=== PATIENT | female | born 1950 | race American Indian/Alaskan Native ===

== ENCOUNTER 2017-10-18 10:03 | Outpatient (CLI) | payer MEDICARE, OTHER ==
--- NOTE | 2017-10-18 15:18 | Cat Scan Report ---
CT ABDOMEN PELVIS WITHOUT CONTRAST: HISTORY: Left lower quadrant abdominal pain. COMPARISON: none. TECHNIQUE: Helical CT in 1.25mm intervals without IV contrast. Sagittal and coronal reconstructions. FINDINGS: Lung bases: Normal. Liver: Normal. Biliary system: Normal. Pancreas: Normal. Spleen: Normal. Kidneys/ureters/bladder: Both kidneys are normal size and position. A 4 mm calyceal stone is noted in the mid right kidney. 1 or 2 simple appearing cysts measuring up to 2 cm in the left kidney. No ureteral stones or hydronephrosis. The bladder is partially empty but mild diffuse bladder wall thickening is suspected, correlate for cystitis. Adrenal glands: Normal. Aorta: Normal caliber. Mild diffuse calcifications are noted. Intestines: There is scattered diverticula in the distal colon. There appears to be an ill-defined fluid collection in the left lower quadrant/left adnexal region measuring up to 5.8 x 4.8 cm. Mild inflammatory changes surround this area. This may represent a diverticular abscess. Appendix: Normal. Pelvic viscera: The uterus is mildly lobulated with small fibroids. The previously described fluid collection in the left adnexal region is again noted and presumably represents a diverticular abscess. Left ovarian abnormality could also be considered. The right adnexa is unremarkable. Ascites: None. Adenopathy: None. Musculoskeletal: Mild to moderate thoracolumbar spondylosis is noted. No fracture or suspicious bony lesion. IMPRESSION: An approximate 5 cm fluid collection containing gas is identified in the left side of the pelvis/left lower quadrant. There are multiple diverticula and mild inflammatory changes in this area. This presumably represents a peridiverticular abscess. Left ovarian pathology could also be considered but is thought less likely. Bladder wall thickening which could represent a cystitis. 4 mm right renal stone. Scattered simple cysts in the left kidney. Uterine fibroid disease.
== END 2017-10-18 10:04 | disposition home or self-care (01) ==
LOC: CT 10:03
PROVIDERS: ATTEND Internal Medicine
DX: N20.0 Calculus of kidney (principal); D25.9 Leiomyoma of uterus, unspecified; K57.30 Diverticulosis of large intestine without perforation or abscess without bleeding; N28.1 Cyst of kidney, acquired; M47.895 Other spondylosis, thoracolumbar region; I70.0 Atherosclerosis of aorta
CPT/HCPCS: 74176

== ENCOUNTER 2017-12-23 06:32 | Day surgery (SDC) | payer MEDICARE ==
[2017-12-23] MEDS ORDERED: NACL 0.9% 500 ML 500 ML IV SCH (07:00)
[2017-12-23 07:31] LABS: Basophils % (Auto) 0.4 % (0.0-1.8); Eosinophils % (Auto) 0.6 % (0.0-4.3); Hemoglobin 12.9 gm/dl (10.1-14.3); Lymphocytes # (Auto) 1.8 K/mm3 (1.2-5.4); Lymphocytes % (Auto) 31.6 % (13.4-35.0); Mean Corpuscular HGB Conc 33 % (30-34); Mean Corpuscular Hemoglobin 28 pg (28-32); Mean Corpuscular Volume 86 fl (79-97); Monocytes # (Auto) 0.4 K/mm3 (0.0-0.8); Monocytes % (Auto) 7.7 % (0.0-7.3); Platelet Count 164 K/mm3 (140-440); Red Blood Count 4.55 M/mm3 (3.65-5.03); Red Cell Distribution Width 17.6 % (13.2-15.2)
[2017-12-23 07:43] LABS: BUN/Creatinine Ratio 26; Blood Urea Nitrogen 21 mg/dL (7-17); Calcium 9.9 mg/dL (8.4-10.2); Hemolysis Index 11; INR 1.05 (0.87-1.13)
[2017-12-23] MEDS ORDERED: HEPARIN 10,000 UNITS/10 ML ONE (10:30)
[2017-12-23] MEDS ORDERED: HEPARIN/NS 5000 UNIT/500ML(CATH LAB) 1,000 ML IR ONE (10:30)
[2017-12-23] MEDS ORDERED: VERSED ONE (10:31)
[2017-12-23] MEDS ORDERED: SUBLIMAZE ONE (10:31)
[2017-12-23] MEDS ORDERED: NITROGLYCERIN SYRINGE 0 ML ONE (10:31)
[2017-12-23] MEDS ORDERED: XYLOCAINE 2% INFILTRATI ONE (10:31)
[2017-12-23] MEDS ORDERED: CALAN ONE (10:31)
--- NOTE | 2017-12-23 12:30 | Cardiac Catherization Report ---
INDICATION FOR PROCEDURE: The patient is a 67-year-old female with history of hypertension, hyperlipidemia, was recently evaluated for palpitations, was noted to have PVCs, has a stress EKG performed, which showed evidence of inferolateral ischemia on the EKG along with salvos of PVCs. Considering her abnormal EKG response and PVCs, she was recommended to have cardiac catheterization for definitive diagnosis and treatment. She is aware of the alternatives of medical therapy. The patient is willing to have cardiac catheterization done for definitive diagnosis. The patient was brought to the catheterization laboratory in a fasting condition. The right wrist area and forearm thoroughly cleansed with Betadine solution. Sterile drapes were applied. Local anesthesia was achieved using 2% Xylocaine. Right radial artery puncture was made using 21-gauge arterial puncture needle. Subsequently, 5 [place] sheath was introduced. The patient received 5 mg of intra-arterial verapamil and 3000 units of intravenous heparin. Using 5-[place] multipurpose catheter, left ventriculogram was performed in SNOW projection using hand injection. Subsequently, 5-[place] TIG catheter was used to obtain the angiograms of the left coronary artery and right coronary artery in multiple views. At the end of the procedure, catheter and sheath was removed. The patient was evaluated for appropriateness of moderate sedation prior to the procedure, and she was sedated with IV versed starting at 10:51 a.m. She has received Versed and fentanyl. She was monitored continuously with EKG, pulse oximetry, and noninvasive blood pressure monitoring. Sedation monitoring discontinued at 11:09 a.m. The patient tolerated the procedure well. The patient was transferred to the room in stable condition. She will be monitored for next few hours. When stable, she will be discharged home on medical therapy. Following findings were noted. HEMODYNAMICS: 1. Opening aortic pressure 158/74, left ventricular pressure 156/25, no gradient across the aortic valve. Estimated ejection fraction 65%. Mitral regurgitation could not be evaluated because of limited amount of dye injected. 2. Right coronary artery dominant artery arises normally from right coronary cusp. Right coronary artery dominant vessel arises normally from right coronary cusp. There is a 40% smooth lesion proximally. Distal RCA, PDA and its branch are without significant disease. 3. Left coronary artery arises normal from left coronary cusp. Left main has mild distal disease. LAD shows diffuse calcifications in the proximal and mid part. Otherwise, LAD and its diagonal branches without significant disease. 4. Right circumflex artery shows fairly medium size to large marginal branch, which has long eccentric 80% stenosis in the proximal one-third. In the mid part, circumflex artery has a focal 90% lesion. This is just prior to the bifurcation. Distal second marginal branch has 30-40% moderate disease. 5. Collaterals none. FINAL IMPRESSION: Normal sized left ventricle with normal contractility with mild to moderate right coronary artery disease and diffuse calcifications of the left anterior descending with no obstructive lesions of the left anterior descending or its branches. Circumflex artery had significant disease in the mid circ and also a fairly large marginal branch. These are amenable to intervention. Plan is to optimize her medical therapy. If she is still symptomatic or ischemic, then we can consider intervention of the mid circumflex and marginal branches. The patient is already on metoprolol 50 mg b.i.d. We will add amlodipine 10 mg a day for control of her blood pressures and see how she responds to medication. The patient tolerated the procedure well. No untoward complications were noted. JOB# [id number] PARISH/JOELLE
[2017-12-23 14:23] VITALS: BP 127/60
== END 2017-12-23 14:00 | disposition home or self-care (01) ==
LOC: CATHLABREC 06:32
PROVIDERS: ATTEND Internal Medicine
DX: I25.10 Atherosclerotic heart disease of native coronary artery without angina pectoris (principal); I10 Essential (primary) hypertension; E78.5 Hyperlipidemia, unspecified; E66.09 Other obesity due to excess calories; Z68.36 Body mass index [BMI] 36.0-36.9, adult; Z79.01 Long term (current) use of anticoagulants; Z79.899 Other long term (current) drug therapy; Z79.82 Long term (current) use of aspirin; Z86.711 Personal history of pulmonary embolism
CPT/HCPCS: 36415; 80048; 85025; 85610; 85730; 93005; 93010; 93458; 99156; 99157; C1887; C1894; J1644; J2250; J3010; J7040; Q9967

== ENCOUNTER 2018-11-22 15:12 | Observation (INO) | payer MEDICARE, OTHER ==
--- NOTE | 2018-11-22 15:31 | Emergency Department Report ---
Blank Doc - Documentation Documentation: This is a 68-year-old female that presents with dizziness x3 days. Denies any headache or visual changes. Denies any other complaints. This initial assessment diagnostic orders/clinical plan/treatment(s) is/are subject to change based on patient's health status, clinical progression and re- assessment by fellow clinical providers in the ED. Further treatment and workup at subsequent clinical providers discretion. Patient/guardians urged not to elope from ED s their condition may be serious if not clinically assessed and managed. Initial orders include: 1-Patient sent to man ED for further evaluation and treatment. 2- Labs 3- EKG 4- orthostatic vitals
[2018-11-22 15:45] LABS: Bilirubin,Urine NEG (Negative); Blood,Urine NEG (Negative); Color,Urine Straw (Yellow); Mucus,Urine FEW /HPF; Protein,Urine <15 mg/dL mg/dL (Negative); Urobilinogen,Urine < 2.0 mg/dL (<2.0)
[2018-11-22] MEDS ORDERED: TYLENOL PO ONE (16:23)
[2018-11-22] MEDS ORDERED: ANTIVERT PO ONE (16:23)
[2018-11-22 16:44] LABS: Basophils % (Auto) 0.5 % (0.0-1.8); Eosinophils % (Auto) 0.6 % (0.0-4.3); Hematocrit 36.5 % (30.3-42.9); Hemoglobin 11.9 gm/dl (10.1-14.3); Lymphocytes # (Auto) 1.5 K/mm3 (1.2-5.4); Lymphocytes % (Auto) 28.6 % (13.4-35.0); Mean Corpuscular HGB Conc 33 % (30-34); Mean Corpuscular Volume 88 fl (79-97); Monocytes # (Auto) 0.3 K/mm3 (0.0-0.8); Monocytes % (Auto) 6.4 % (0.0-7.3); Platelet Count 161 K/mm3 (140-440); Red Blood Count 4.13 M/mm3 (3.65-5.03); Red Cell Distribution Width 14.9 % (13.2-15.2)
[2018-11-22 16:53] LABS: INR 1.09 (0.87-1.13)
[2018-11-22 17:05] LABS: Alanine Aminotransferase 11 units/L (7-56); Albumin 4.1 g/dL (3.9-5); BUN/Creatinine Ratio 28; Blood Urea Nitrogen 25 mg/dL (7-17); Hemolysis Index 14
--- NOTE | 2018-11-22 17:43 | Cat Scan Report ---
FINAL REPORT EXAM: CT HEAD/BRAIN WO CON HISTORY: dizzy off balance TECHNIQUE: 2.5 millimeter axial images from the skullbase to the vertex. Comparison: None FINDINGS: There is no evidence of an acute intracranial process, intracranial hemorrhage or mass effect. The ventricles are normal size. There is moderate to marked atherosclerotic vascular calcification of the internal carotid arteries b ilaterally at the skullbase. The visualized portions of the orbits, paranasal and mastoid sinuses are unremarkable. The bony structures are unremarkable. IMPRESSION: 1. No evidence of an acute intracranial process, intracranial hemorrhage or mass effect. If there is a clinical suspicion of an acute intracranial process, MRI brain may be helpful.
--- NOTE | 2018-11-22 18:52 | Emergency Department Report ---
ED General Adult HPI - General Chief complaint: Dizziness Stated complaint: DIZZY Time Seen by Provider: 11/22/18 15:22 Source: patient, RN notes reviewed, old records reviewed Mode of arrival: Ambulatory Limitations: No Limitations - History of Present Illness Initial comments: This is a 68-year-old female who is not known to this provider previously. Her past medical history includes hypertension, heart disease, coronary artery disease., Gout, high cholesterol. The patient presents to the emergency room today with a complaint of nontraumatic painless dizziness and subjective unsteady gait. These symptoms have been present for the past 2-3 days. There is no tinnitus, there is no vertigo, there is no change in auditory acuity. Symptoms constant, painless, do not radiate anywhere, and worsen when the patient attempts to walk. She has no neck pain, chest pain, abdominal pain, shortness of breath or urinary symptoms. -: Gradual Severity scale (0 -10): 5 Consistency: constant Improves with: other Worsens with: other Associated Symptoms: other. denies: confusion, chest pain, cough, diaphoresis, fever/chills, headaches, loss of appetite, malaise, nausea/vomiting, rash, seizure, shortness of breath, syncope, weakness - Related Data Home Medications Medication Instructions Recorded Confirmed Last Taken Allopurinol [Zyloprim] 300 mg PO QDAY 12/23/17 12/23/17 12/22/17 Aspirin EC [Aspirin Enteric Coated 81 mg PO QDAY 12/23/17 12/23/17 12/22/17 TAB] AtorvaSTATin [Lipitor] 40 mg PO QDAY 12/23/17 12/23/17 12/23/17 05:30 Metoprolol [Lopressor TAB] 50 mg PO BID 12/23/17 12/23/17 12/23/17 05:30 Triamter/Hctz 37.5-25 mg 1 tab PO QDAY 12/23/17 12/23/17 12/23/17 05:30 [Maxzide-25] Valsartan [Diovan] 160 mg PO QDAY 12/23/17 12/23/17 12/23/17 05:30 Previous Rx's Medication Instructions Recorded Last Taken Type amLODIPine [Norvasc] 10 mg PO DAILY #30 tab 12/23/17 Unknown Rx Allergies Allergy/AdvReac Type Severity Reaction Status Date / Time No Known Allergies Allergy Verified 12/23/17 07:00 ED Review of Systems ROS: Stated complaint: DIZZY Other details as noted in HPI Constitutional: denies: fever, malaise Eyes: denies: vision change ENT: denies: ear pain, throat pain, epistaxis Respiratory: denies: cough Cardiovascular: denies: chest pain Gastrointestinal: denies: abdominal pain, nausea, vomiting Genitourinary: denies: dysuria Musculoskeletal: denies: back pain Skin: denies: lesions Neurological: abnormal gait Psychiatric: denies: anxiety ED Past Medical Hx - Past Medical History Hx GERD: Yes (Hx) - Surgical History Past Surgical History?: No - Social History Smoking Status: Never Smoker Substance Use Type: None - Medications Home Medications: Home Medications Medication Instructions Recorded Confirmed Last Taken Type Allopurinol [Zyloprim] 300 mg PO QDAY 12/23/17 12/23/17 12/22/17 History Aspirin EC [Aspirin Enteric Coated 81 mg PO QDAY 12/23/17 12/23/17 12/22/17 History TAB] AtorvaSTATin [Lipitor] 40 mg PO QDAY 12/23/17 12/23/17 12/23/17 05:30 History Metoprolol [Lopressor TAB] 50 mg PO BID 12/23/17 12/23/17 12/23/17 05:30 History Triamter/Hctz 37.5-25 mg 1 tab PO QDAY 12/23/17 12/23/17 12/23/17 05:30 History [Maxzide-25] Valsartan [Diovan] 160 mg PO QDAY 12/23/17 12/23/17 12/23/17 05:30 History amLODIPine [Norvasc] 10 mg PO DAILY #30 tab 12/23/17 Unknown Rx ED Physical Exam - General Limitations: No Limitations General appearance: alert, in no apparent distress - Head Head exam: Present: atraumatic, normocephalic - Eye Eye exam: Present: normal appearance, PERRL, EOMI, other (visual acuity intact to finger counting, color perception, reading at a close distance). Absent: nystagmus - ENT ENT exam: Present: normal exam, normal orophraynx, mucous membranes moist, TM's normal bilaterally, normal external ear exam, other (there is no mastoid t enderness. No vesicular lesions noted.) - Neck Neck exam: Present: normal inspection, full ROM. Absent: tenderness, meningismus - Respiratory Respiratory exam: Present: normal lung sounds bilaterally. Absent: respiratory distress - Cardiovascular Cardiovascular Exam: Present: regular rate, normal rhythm, normal heart sounds. Absent: bradycardia, tachycardia, irregular rhythm, systolic murmur, diastolic murmur, rubs, gallop - GI/Abdominal GI/Abdominal exam: Present: soft. Absent: distended, tenderness, guarding, rebound, rigid, pulsatile mass - Extremities Exam Extremities exam: Present: normal inspection, full ROM, other (2+ pulses noted in the bilateral upper, lower extremities. Compartments soft. No long bony tenderness. The pelvis is stable.). Absent: pedal edema, joint swelling, calf tenderness - Back Exam Back exam: Present: normal inspection, full ROM. Absent: tenderness, CVA tenderness (R) - Neurological Exam Neurological exam: Present: alert (there is no past-pointing. There is normal [id number]. He has negative pronator drift.), oriented X3, CN II-XII intact, abnormal gait (patient walks with a broad-based unsteady gait, and requires a 1 person assist), other (Extraocular movements intact. Tongue midline. No facial droop. Facial sensation intact to light touch in the V1, V2, V3 distribution bilaterally. 5 and 5 strength in 4 extremities.. Sensation is intact to light touch in 4 extremities.). Absent: motor sensory deficit - Psychiatric Psychiatric exam: Present: normal affect, normal mood - Skin Skin exam: Present: warm, dry, intact, normal color. Absent: rash ED Course Vital Signs 11/22/18 11/22/18 11/22/18 15:28 18:06 18:24 Temperature 98 F Pulse Rate 62 52 L Respiratory 16 16 16 Rate Blood Pressure 157/77 155/72 [Left] O2 Sat by Pulse 100 97 Oximetry ED Medical Decision Making - Lab Data Result diagrams: 11/22/18 15:55 11/22/18 15:55 Vital Signs 11/22/18 11/22/18 11/22/18 15:28 18:06 18:24 Temperature 98 F Pulse Rate 62 52 L Respiratory 16 16 16 Rate Blood Pressure 157/77 155/72 [Left] O2 Sat by Pulse 100 97 Oximetry Lab Results 11/22/18 11/22/18 11/22/18 Range/Units 15:55 15:55 15:55 WBC 5.3 (4.5-11.0) K/mm3 RBC 4.13 (3.65-5.03) M/mm3 Hgb 11.9 (10.1-14.3) gm/dl Hct 36.5 (30.3-42.9) % MCV 88 (79-97) fl MCH 29 (28-32) pg MCHC 33 (30-34) % RDW 14.9 (13.2-15.2) % Plt Count 161 (140-440) K/mm3 Lymph % (Auto) 28.6 (13.4-35.0) % [place] % (Auto) 6.4 (0.0-7.3) % Eos % (Auto) 0.6 (0.0-4.3) % Baso % (Auto) 0.5 (0.0-1.8) % Lymph # 1.5 (1.2-5.4) K/mm3 [place] # 0.3 (0.0-0.8) K/mm3 Eos # 0.0 (0.0-0.4) K/mm3 Baso # 0.0 (0.0-0.1) K/mm3 Seg Neutrophils % 63.9 (40.0-70.0) % Seg Neutrophils # 3.4 (1.8-7.7) K/mm3 PT 14.8 (12.2-14.9) Sec. INR 1.09 (0.87-1.13) APTT 24.0 L (24.2-36.6) Sec. Sodium 140 (137-145) mmol/L Potassium 3.9 (3.6-5.0) mmol/L Chloride 103.8 (98-107) mmol/L Carbon Dioxide 23 (22-30) mmol/L Anion Gap 17 mmol/L BUN 25 H (7-17) mg/dL Creatinine 0.9 (0.7-1.2) mg/dL Estimated GFR > 60 ml/min BUN/Creatinine Ratio 28 % Glucose 102 H (65-100) mg/dL Calcium 10.0 (8.4-10.2) mg/dL Total Bilirubin 0.40 (0.1-1.2) mg/dL AST 18 (5-40) units/L ALT 11 (7-56) units/L Alkaline Phosphatase 58 (35-129) units/L Troponin T < 0.010 (0.00-0.029) ng/mL Total Protein 7.4 (6.3-8.2) g/dL Albumin 4.1 (3.9-5) g/dL Albumin/Globulin Ratio 1.2 % Urine Color (Yellow) Urine Turbidity (Clear) Urine pH (5.0-7.0) Ur Specific [place] (1.003-1.030) Urine Protein (Negative) mg/dL Urine Glucose (UA) (Negative) mg/dL Urine Ketones (Negative) mg/dL Urine Blood (Negative) Urine Nitrite (Negative) Urine Bilirubin (Negative) Urine Urobilinogen (<2.0) mg/dL Ur Leukocyte Esterase (Negative) Urine WBC (Auto) (0.0-6.0) /HPF Urine RBC (Auto) (0.0-6.0) /HPF U Epithel Cells (Auto) (0-13.0) /HPF Urine Mucus /HPF Salicylates (2.8-20.0) mg/dL 11/22/18 11/22/18 Range/Units 16:29 Unknown WBC (4.5-11.0) K/mm3 RBC (3.65-5.03) M/mm3 Hgb (10.1-14.3) gm/dl Hct (30.3-42.9) % MCV (79-97) fl MCH (28-32) pg MCHC (30-34) % RDW (13.2-15.2) % Plt Count (140-440) K/mm3 Lymph % (Auto) (13.4-35.0) % [place] % (Auto) (0.0-7.3) % Eos % (Auto) (0.0-4.3) % Baso % (Auto) (0.0-1.8) % Lymph # (1.2-5.4) K/mm3 [place] # (0.0-0.8) K/mm3 Eos # (0.0-0.4) K/mm3 Baso # (0.0-0.1) K/mm3 Seg Neutrophils % (40.0-70.0) % Seg Neutrophils # (1.8-7.7) K/mm3 PT (12.2-14.9) Sec. INR (0.87-1.13) APTT (24.2-36.6) Sec. Sodium (137-145) mmol/L Potassium (3.6-5.0) mmol/L Chloride (98-107) mmol/L Carbon Dioxide (22-30) mmol/L Anion Gap mmol/L BUN (7-17) mg/dL Creatinine (0.7-1.2) mg/dL Estimated GFR ml/min BUN/Creatinine Ratio % Glucose (65-100) mg/dL Calcium (8.4-10.2) mg/dL Total Bilirubin (0.1-1.2) mg/dL AST (5-40) units/L ALT (7-56) units/L Alkaline Phosphatase (35-129) units/L Troponin T (0.00-0.029) ng/mL Total Protein (6.3-8.2) g/dL Albumin (3.9-5) g/dL Albumin/Globulin Ratio % Urine Color Straw (Yellow) Urine Turbidity Clear (Clear) Urine pH 6.0 (5.0-7.0) Ur Specific [place] 1.008 (1.003-1.030) Urine Protein <15 mg/dl (Negative) mg/dL Urine Glucose (UA) Neg (Negative) mg/dL Urine Ketones Neg (Negative) mg/dL Urine Blood Neg (Negative) Urine Nitrite Neg (Negative) Urine Bilirubin Neg (Negative) Urine Urobilinogen < 2.0 (<2.0) mg/dL Ur Leukocyte Esterase Neg (Negative) Urine WBC (Auto) 3.0 (0.0-6.0) /HPF Urine RBC (Auto) 1.0 (0.0-6.0) /HPF U Epithel Cells (Auto) 4.0 (0-13.0) /HPF Urine Mucus Few /HPF Salicylates < 0.3 L (2.8-20.0) mg/dL - EKG Data -: EKG Interpreted by Ca EKG shows normal: sinus rhythm Rate: normal - EKG Data Interpretation: nonspecific ST-T wave duran 11/22/18 18:49 Sinus, bradycardic, 55 beats per minutes, new onset left bundle branch block, QTC prolonged, abnormal EKG, not having chest pain, left bundle-branch block appears to be new when compared to prior EKG from December 2017 - Radiology Data Radiology results: report reviewed, image reviewed Noncontrast CT scan of the brain is negative for acute disease - Medical Decision Making Differential diagnosis, including not limited to: Orthostasis, vagal event, structural cardiac disease, acute coronary syndrome, subacute stroke Assessment and plan: 68-year-old female with approximately 2-3 days of subjective unsteady gait. The patient is afebrile, with reassuring vital signs, with a Berna Coma Scale of 15, with an NIH score of 0. She walks with an unsteady gait. Not a TPA candidate as symptoms present for greater than 4.5 hours. Does not require emergent endovascular imaging as symptoms have been present for greater than 24 hours. Screening laboratory studies unremarkable. Patient given meclizine and aspirin. Discussed admission with patient and to exclude subacute stroke. They're in agreement. Her EKG today is morphologically changes when compared to her prior EKG with a new left bundle branch block. However she is not having chest pain or shortness of breath and she has a negative troponin. Patient does not require an emergent cardiology evaluation for her nonspecific EKG changes, but she may benefit from inpatient cardiology evaluation. The hospital physician, Dr. Heller, has accepted the patient to the medical service, I will defer to his judgment as to whether or not he feels like an in- house cardiology consult is necessary for her EKG changes. Critical care attestation.: If time is entered above; I have spent that time in minutes in the direct care of this critically ill patient, excluding procedure time. ED Disposition Clinical Impression: Unsteady gait Disposition: OP ADMIT IP TO THIS HOSP Is pt being admited?: Yes Does the pt Need Aspirin: Yes Condition: Stable Referrals: RICH LUNA [Primary Care Provider] - 3-5 Days - Assessment Assessment Interval: Baseline - Level of Consciousness 1a. Level of Consciousness: alert/keenly responsive - LOC Questions 1b. LOC Questions: answers both correctly - LOC Command 1c. LOC Commands: performs tasks correctly - Best Gaze 2. Best Gaze: normal - Visual 3. Visual: no visual loss - Facial Palsy 4. Facial Palsy: normal symmetrical movement - Motor Arm 5b. Motor Arm Right: no drift 5a. Motor Arm Left: no drift - Motor Leg 6b. Motor Leg Right: no drift 6a. Motor Leg Left: no drift - Limb Ataxia 7. Limb Ataxia: absent - Sensory 8. Sensory: normal - Best Language 9. Best Language: no aphasia - Dysarthria 10. Dysarthria: normal - Extinction and Inattention 11. Extinction/Inattention: no abnormality - Scoring Total Score: 0 Stroke Severity: No Stroke Symptoms
[2018-11-22] MEDS ORDERED: BABY ASPIRIN PO ONE (18:53)
[2018-11-22] MEDS ORDERED: TYLENOL PO PRN ×2 (19:16→19:35)
[2018-11-22] MEDS ORDERED: ZOFRAN IV PRN ×2 (19:16→19:35)
[2018-11-22] MEDS ORDERED: SODIUM CHLORIDE FLUSH SYRINGE 10 ML IV PRN ×2 (19:16→19:35)
--- NOTE | 2018-11-22 19:35 | History and Physical Report ---
History of Present Illness Date of examination: 11/22/18 Date of admission: 11/22/2018 Chief complaint: Severe dizziness and unsteady gait for 3 days History of present illness: 7 68-year-old female with history of coronary artery disease, hypertension, gout and hyperlipidemia comes in for dizziness and unsteady gait for the last 3 days. Patient has been walking unsteady and with a feeling of falling down for the last 3 days. No worsening or improvement in symptoms. No weakness in any 4 extremities. No diplopia or nasal regurgitation of fluids. No difficulty swallowing. No chest pain. No fever or chills. Past Medical History GERD Gout Hypertension Hyperlipidemia Coronary artery disease Surgical History Past Surgical History?: No Social History Smoking Status: Never Smoker Substance Use Type: None Family history hypertension - Medications Home Medications: Home Medications Medication Instructions Recorded Confirmed Last Taken Type Allopurinol [Zyloprim] 300 mg PO QDAY 12/23/17 12/23/17 12/22/17 History Aspirin EC [Aspirin Enteric Coated 81 mg PO QDAY 12/23/17 12/23/17 12/22/17 History TAB] AtorvaSTATin [Lipitor] 40 mg PO QDAY 12/23/17 12/23/17 12/23/17 05:30 History Metoprolol [Lopressor TAB] 50 mg PO BID 12/23/17 12/23/17 12/23/17 05:30 History Triamter/Hctz 37.5-25 mg 1 tab PO QDAY 12/23/17 12/23/17 12/23/17 05:30 History [Maxzide-25] Valsartan [Diovan] 160 mg PO QDAY 12/23/17 12/23/17 12/23/17 05:30 History amLODIPine [Norvasc] 10 mg PO DAILY #30 tab 12/23/17 Unknown Rx Review of systems ROS: Stated complaint: DIZZY Other details as noted in HPI Constitutional: denies: fever, malaise Eyes: denies: vision change ENT: denies: ear pain, throat pain, epistaxis Respiratory: denies: cough Cardiovascular: denies: chest pain Gastrointestinal: denies: abdominal pain, nausea, vomiting Genitourinary: denies: dysuria Musculoskeletal: denies: back pain Skin: denies: lesions Neurological: abnormal gait Psychiatric: denies: anxiety Medications and Allergies Allergies Allergy/AdvReac Type Severity Reaction Status Date / Time No Known Allergies Allergy Verified 12/23/17 07:00 Home Medications Medication Instructions Recorded Confirmed Last Taken Type Allopurinol [Zyloprim] 300 mg PO QDAY 12/23/17 12/23/17 11/22/18 History Aspirin EC [Aspirin Enteric Coated 81 mg PO QDAY 12/23/17 11/22/18 11/22/18 History TAB] AtorvaSTATin [Lipitor] 40 mg PO QDAY 12/23/17 11/22/18 11/22/18 History Metoprolol [Lopressor TAB] 50 mg PO BID 12/23/17 11/22/18 11/22/18 History Triamter/Hctz 37.5-25 mg 1 tab PO QDAY 12/23/17 11/22/18 11/22/18 History [Maxzide-25] amLODIPine [Norvasc] 10 mg PO DAILY #30 tab 12/23/17 11/22/18 11/22/18 Rx Allopurinol 300 mg PO QDAY 11/22/18 11/22/18 11/22/18 History Isosorbide Mononitrate 30 mg PO QDAY 11/22/18 11/22/18 Unknown History Losartan Potassium 50 mg PO QDAY 11/22/18 11/22/18 11/22/18 History Active Meds: Active Medications Acetaminophen (Tylenol) 650 mg PO Q4H PRN PRN Reason: Pain MILD(1-3)/Fever >100.5/[place]IVERA Allopurinol (Zyloprim) 100 mg PO QDAY [facility] Amlodipine Besylate (Norvasc) 10 mg PO DAILY [facility] Aspirin (Halfprin Ec) 81 mg PO QDAY [facility] Atorvastatin Calcium (Lipitor) 40 mg PO QDAY [facility] Metoprolol Tartrate (Lopressor) 50 mg PO BID [facility] Ondansetron HCl (Zofran) 4 mg IV Q8H PRN PRN Reason: Nausea And Vomiting Sodium Chloride (Sodium Chloride Flush Syringe 10 Ml) 10 ml IV BID [facility] Sodium Chloride (Sodium Chloride Flush Syringe 10 Ml) 10 ml IV PRN PRN PRN Reason: LINE FLUSH Triamterene/HCTZ (Maxzide-25) 1 each PO QDAY [facility] Valsartan (Diovan) 160 mg PO QDAY [facility] Exam - Constitutional Vitals: Temp Pulse Resp BP Pulse Ox 98 F 52 L 16 155/72 97 11/22/18 15:28 11/22/18 18:24 11/22/18 18:24 11/22/18 18:24 11/22/18 18:24 General appearance: Present: no acute distress, well-nourished - EENT Eyes: Present: PERRL ENT: hearing intact, clear oral mucosa - Neck Neck: Present: supple, normal ROM - Respiratory Respiratory effort: normal Respiratory: bilateral: CTA - Cardiovascular Heart rate: 78 Rhythm: regular Heart Sounds: Present: S1 & S2. Absent: rub, click - Extremities Extremities: no ischemia, pulses intact, pulses symmetrical, No edema Peripheral Pulses: within normal limits - Abdominal General gastrointestinal: Present: soft, non-tender, non-distended, normal bowel sounds Female genitourinary: Present: normal - Integumentary Integumentary: Present: clear, warm, dry - Musculoskeletal Musculoskeletal: gait normal, strength equal bilaterally - Psychiatric Psychiatric: appropriate mood/affect, intact judgment & insight - Neurologic Neurologic: CNII-XII intact, moves all extremities, other (unsteady gait) - Allied Health Allied health notes reviewed: nursing, case management Results - Labs CBC & Chem 7: 11/22/18 15:55 11/22/18 15:55 Labs: Laboratory Last Values WBC 5.3 K/mm3 (4.5-11.0) 11/22/18 15:55 RBC 4.13 M/mm3 (3.65-5.03) 11/22/18 15:55 Hgb 11.9 gm/dl (10.1-14.3) 11/22/18 15:55 Hct 36.5 % (30.3-42.9) 11/22/18 15:55 MCV 88 fl (79-97) 11/22/18 15:55 MCH 29 pg (28-32) 11/22/18 15:55 MCHC 33 % (30-34) 11/22/18 15:55 RDW 14.9 % (13.2-15.2) 11/22/18 15:55 Plt Count 161 K/mm3 (140-440) 11/22/18 15:55 Lymph % (Auto) 28.6 % (13.4-35.0) 11/22/18 15:55 [place] % (Auto) 6.4 % (0.0-7.3) 11/22/18 15:55 Eos % (Auto) 0.6 % (0.0-4.3) 11/22/18 15:55 Baso % (Auto) 0.5 % (0.0-1.8) 11/22/18 15:55 Lymph # 1.5 K/mm3 (1.2-5.4) 11/22/18 15:55 [place] # 0.3 K/mm3 (0.0-0.8) 11/22/18 15:55 Eos # 0.0 K/mm3 (0.0-0.4) 11/22/18 15:55 Baso # 0.0 K/mm3 (0.0-0.1) 11/22/18 15:55 Seg Neutrophils % 63.9 % (40.0-70.0) 11/22/18 15:55 Seg Neutrophils # 3.4 K/mm3 (1.8-7.7) 11/22/18 15:55 PT 14.8 Sec. (12.2-14.9) 11/22/18 15:55 INR 1.09 (0.87-1.13) 11/22/18 15:55 APTT 24.0 Sec. (24.2-36.6) L 11/22/18 15:55 Sodium 140 mmol/L (137-145) 11/22/18 15:55 Potassium 3.9 mmol/L (3.6-5.0) 11/22/18 15:55 Chloride 103.8 mmol/L (98-107) 11/22/18 15:55 Carbon Dioxide 23 mmol/L (22-30) 11/22/18 15:55 Anion Gap 17 mmol/L 11/22/18 15:55 BUN 25 mg/dL (7-17) H 11/22/18 15:55 Creatinine 0.9 mg/dL (0.7-1.2) 11/22/18 15:55 Estimated GFR > 60 ml/min 11/22/18 15:55 BUN/Creatinine Ratio 28 % 11/22/18 15:55 Glucose 102 mg/dL (65-100) H 11/22/18 15:55 Calcium 10.0 mg/dL (8.4-10.2) 11/22/18 15:55 Total Bilirubin 0.40 mg/dL (0.1-1.2) 11/22/18 15:55 AST 18 units/L (5-40) 11/22/18 15:55 ALT 11 units/L (7-56) 11/22/18 15:55 Alkaline Phosphatase 58 units/L (35-129) 11/22/18 15:55 Troponin T < 0.010 ng/mL (0.00-0.029) 11/22/18 15:55 Total Protein 7.4 g/dL (6.3-8.2) 11/22/18 15:55 Albumin 4.1 g/dL (3.9-5) 11/22/18 15:55 Albumin/Globulin Ratio 1.2 % 11/22/18 15:55 Urine Color Straw (Yellow) 11/22/18 Unknown Urine Turbidity Clear (Clear) 11/22/18 Unknown Urine pH 6.0 (5.0-7.0) 11/22/18 Unknown Ur Specific [place] 1.008 (1.003-1.030) 11/22/18 Unknown Urine Protein <15 mg/dl mg/dL (Negative) 11/22/18 Unknown Urine Glucose (UA) Neg mg/dL (Negative) 11/22/18 Unknown Urine Ketones Neg mg/dL (Negative) 11/22/18 Unknown Urine Blood Neg (Negative) 11/22/18 Unknown Urine Nitrite Neg (Negative) 11/22/18 Unknown Urine Bilirubin Neg (Negative) 11/22/18 Unknown Urine Urobilinogen < 2.0 mg/dL (<2.0) 11/22/18 Unknown Ur Leukocyte Esterase Neg (Negative) 11/22/18 Unknown Urine WBC (Auto) 3.0 /HPF (0.0-6.0) 11/22/18 Unknown Urine RBC (Auto) 1.0 /HPF (0.0-6.0) 11/22/18 Unknown U Epithel Cells (Auto) 4.0 /HPF (0-13.0) 11/22/18 Unknown Urine Mucus Few /HPF 11/22/18 Unknown Salicylates < 0.3 mg/dL (2.8-20.0) L 11/22/18 16:29 Short CBC 11/22/18 Range/Units 15:55 WBC 5.3 (4.5-11.0) K/mm3 Hgb 11.9 (10.1-14.3) gm/dl Hct 36.5 (30.3-42.9) % Plt Count 161 (140-440) K/mm3 BMP 11/22/18 15:55 Sodium 140 Potassium 3.9 Chloride 103.8 Carbon Dioxide 23 BUN 25 H Creatinine 0.9 Glucose 102 H Calcium 10.0 Cardiac Enzymes 11/22/18 Range/Units 15:55 Troponin T < 0.010 (0.00-0.029) ng/mL Liver Function 11/22/18 Range/Units 15:55 Total Bilirubin 0.40 (0.1-1.2) mg/dL AST 18 (5-40) units/L ALT 11 (7-56) units/L Alkaline Phosphatase 58 (35-129) units/L Albumin 4.1 (3.9-5) g/dL Urine 11/22/18 Range/Units Unknown Urine Color Straw (Yellow) Urine pH 6.0 (5.0-7.0) Ur Specific [place] 1.008 (1.003-1.030) Urine Protein <15 mg/dl (Negative) mg/dL Urine Glucose (UA) Neg (Negative) mg/dL - Imaging and Cardiology EKG: report reviewed (sinus bradycardia heart rate of 49/m in December) Imaging and Cardiology: EKG done today Normal sinus rhythm Prolonged MD interval Left atrial enlargement Incomplete left bundle-branch block left ventricular hypertrophy anterior ST elevation CT of the head IMPRESSION: 1. No evidence of an acute intracranial process, intracranial hemorrhage or mass effect. If there is a clinical suspicion of an acute intracranial process, MRI brain may be helpful. Assessment and Plan Advance Directives: Yes (full code) Plan of care discussed with patient/family: Yes - Patient Problems (1) Acute cerebrovascular accident Current Visit: Yes Status: Acute Plan to address problem: Patient may have acute infarct in the posterior cerebellar region Patient did get MRI/MRA echocardiogram and carotid duplex scan Neurologic consult requested Patient initiated on aspirin and Plavix (2) CAD (coronary artery disease) Current Visit: No Status: Chronic Qualifiers: Coronary Disease-Associated Artery/Lesion type: [place] artery Associated angina: without angina Plan to address problem: Patient had cardiac cath December 2017 there was some coronary artery disease but no critical stenosis. Patient had mild to moderate right coronary artery disease and diffuse calcifications of the left anterior descending with nonobstructive lesions of the left anterior descending BRANCHES. (3) HTN (hypertension) Current Visit: No Status: Chronic Qualifiers: Hypertension type: essential hypertension Qualified Code(s): I10 - Essential (primary) hypertension Plan to address problem: Continue antihypertensives (4) Hyperlipidemia Current Visit: No Status: Chronic Qualifiers: Hyperlipidemia type: mixed hyperlipidemia Qualified Code(s): E78.2 - Mixed hyperlipidemia Plan to address problem: Continue statins (5) Gout Current Visit: Yes Status: Inactive Plan to address problem: Continue allopurinol 100 mg once a day (6) DVT prophylaxis Current Visit: Yes Status: Acute Plan to address problem: On Lovenox and GI prophylaxis
[2018-11-22] MEDS ORDERED: DILAUDID IV PRN (19:51)
[2018-11-22] MEDS ORDERED: PERCOCET 5/325 PO PRN (19:51)
[2018-11-22] MEDS ORDERED: BABY ASPIRIN PO SCH (20:00)
[2018-11-22] MEDS ORDERED: SODIUM CHLORIDE FLUSH SYRINGE 10 ML INJ PRN (20:17)
[2018-11-22] MEDS ORDERED: NON-FORMULARY (Isosorbide Mononitrate [Isosorbide Mononitrate] 30 MG) PO SCH (20:30)
[2018-11-22] MEDS: COZAAR PO SCH (21:42)
[2018-11-22] MEDS: DIOVAN PO SCH (21:42)
[2018-11-22] MEDS: IMDUR PO SCH (21:43)
[2018-11-22] MEDS: ZYLOPRIM PO SCH (21:44)
[2018-11-22] MEDS: MAXZIDE-25 PO SCH (21:44)
[2018-11-22] MEDS: NORVASC PO SCH (21:44)
[2018-11-22] MEDS: LOPRESSOR PO SCH (21:46)
[2018-11-22] MEDS ORDERED: ZYLOPRIM PO SCH (22:00)
[2018-11-22] MEDS ORDERED: SODIUM CHLORIDE FLUSH SYRINGE 10 ML IV SCH (22:00)
[2018-11-22] MEDS: PLAVIX PO SCH (22:34)
[2018-11-22] MEDS: LOVENOX SUB-Q SCH (22:34)
[2018-11-22] MEDS: PEPCID PO SCH (22:34)
[2018-11-22] MEDS: SODIUM CHLORIDE FLUSH SYRINGE 10 ML IV SCH (22:51)
[2018-11-23 04:50] LABS: Basophils % (Auto) 0.4 % (0.0-1.8); Eosinophils % (Auto) 0.8 % (0.0-4.3); Hematocrit 35.3 % (30.3-42.9); Hemoglobin 11.4 gm/dl (10.1-14.3); Lymphocytes # (Auto) 2.2 K/mm3 (1.2-5.4); Lymphocytes % (Auto) 42.8 % (13.4-35.0); Mean Corpuscular HGB Conc 32 % (30-34); Mean Corpuscular Volume 89 fl (79-97); Monocytes # (Auto) 0.3 K/mm3 (0.0-0.8); Monocytes % (Auto) 5.8 % (0.0-7.3); Platelet Count 159 K/mm3 (140-440); Red Blood Count 3.96 M/mm3 (3.65-5.03); Red Cell Distribution Width 15.2 % (13.2-15.2)
[2018-11-23 05:17] LABS: Alanine Aminotransferase 8 units/L (7-56); Albumin 3.8 g/dL (3.9-5); BUN/Creatinine Ratio 22; Blood Urea Nitrogen 20 mg/dL (7-17); Calcium 9.6 mg/dL (8.4-10.2); Chol/HDL Ratio 3.03 %; HDL Cholesterol 55 mg/dL (40-59); Hemolysis Index 5; LDL Cholesterol,Direct 104 mg/dL (50-130)
--- NOTE | 2018-11-23 10:06 | Magnetic Resonance Report ---
MRI BRAIN WITHOUT CONTRAST: 11/23/18 CLINICAL: Stroke. TECHNIQUE: Axial diffusion, T1, T2, gradient echo T2*, coronal and axial FLAIR and sagittal T1 sequences on a 1.5 [place] magnet. FINDINGS: The ventricles and sulci are normal for age. No restricted diffusion. Moderate bilateral scattered subcortical white matter hyperintensities on FLAIR and T2. No other abnormal signal. No microbleeds on the gradient echo sequence. No mass or mass effect. No hemorrhage, edema or extra-axial collection. Normal pituitary and optic chiasm. The brainstem and cerebellum are normal. Intact vascular flow voids. Normal sinuses. The orbits, and soft tissues are normal. Normal calvarium and skull base. IMPRESSION: No evidence of acute/subacute infarct or hemorrhage. Bilateral nonspecific multifocal white matter hyperintensities on FLAIR and T2.
--- NOTE | 2018-11-23 10:12 | Magnetic Resonance Report ---
MRA HEAD WITHOUT CONTRAST: 11/23/18 CLINICAL: Stroke. TECHNIQUE: Axial 3-D [id number] MR angiography of the [place] with review of axial source images. FINDINGS: Intact [place] with no aneurysm, stenosis or occlusion. Symmetric blood flow in the anterior, middle and posterior cerebral arteries. Normal basilar and vertebral arteries. IMPRESSION: Normal study.
--- NOTE | 2018-11-23 10:33 | Vascular Lab Report ---
FINAL REPORT EXAM: VL CAROTID DUPLEX BILAT HISTORY: stroke COMPARISON: None. TECHNIQUE: Duplex Doppler ultrasound of the carotid arteries was performed. FINDINGS: There is smooth heterogeneous plaque within the right carotid bulb and the proximal right internal ca rotid artery. There is less than 50 percent stenosis. There is antegrade flow in the right vertebral artery. There is smooth heterogeneous plaque within the left carotid bulb and proximal left internal carotid artery. There is less than 50 percent stenosis. There is antegrade flow in the left vertebral artery. Peak systolic velocities (cm/sec) are as follows: Right common carotid artery: 53.1 Right internal carotid artery: 53.3 Right external carotid artery: 77.2 Left common carotid artery: 78.2 Left internal carotid artery: 56.2 Left external carotid artery: 70.3 Peak systolic velocity ratio between the right internal carotid artery and the right common carotid a rtery: 1 Peak systolic velocity ratio between the left internal carotid artery and left common carotid artery: 0.72 IMPRESSION: Less than 50 percent stenosis of the right internal carotid artery. Less than 50 percent stenosis of the left internal carotid artery.
[2018-11-23] MEDS: NORVASC PO SCH (12:33)
[2018-11-23] MEDS: MAXZIDE-25 PO SCH (12:34)
[2018-11-23] MEDS: PEPCID PO SCH ×2 (12:34→21:53)
[2018-11-23] MEDS: PLAVIX PO SCH (12:35)
[2018-11-23] MEDS: DIOVAN PO SCH (12:35)
[2018-11-23] MEDS: COZAAR PO SCH (12:35)
[2018-11-23] MEDS: ASPIRIN PO SCH (12:36)
[2018-11-23] MEDS: IMDUR PO SCH (12:36)
[2018-11-23] MEDS: ZYLOPRIM PO SCH (12:36)
[2018-11-23] MEDS: LOPRESSOR PO SCH ×2 (12:37→21:49)
[2018-11-23] MEDS: SODIUM CHLORIDE FLUSH SYRINGE 10 ML IV SCH ×2 (12:39→21:53)
[2018-11-23] MEDS: ANTIVERT PO SCH ×2 (12:52→20:16)
--- NOTE | 2018-11-23 15:18 | Progress Note ---
Assessment and Plan Assessment and plan: 68-year-old female with history of coronary artery disease, hypertension, gout and hyperlipidemia comes in for dizziness and unsteady gait for the last 3 days. Patient has been walking unsteady and with a feeling of falling down for the last 3 days. No worsening or improvement in symptoms. No weakness in any 4 extremities. No diplopia or nasal regurgitation of fluids. No difficulty swallowing. No chest pain. No fever or chills. (1) Acute cerebrovascular accident Current Visit: Yes Status: Acute Plan to address problem: Patient may have acute infarct in the posterior cerebellar region Patient did get MRI/MRA echocardiogram and it wwas negative. and carotid duplex scan Neurologic consult requested Patient initiated on aspirin Will discontinue plavix. This is likely BPPV Start Meclizine (2) CAD (coronary artery disease) Current Visit: No Status: Chronic Qualifiers: Coronary Disease-Associated Artery/Lesion type: [place] artery Associated angina: without angina Plan to address problem: Patient had cardiac cath December 2017 there was some coronary artery disease but no critical stenosis. Patient had mild to moderate right coronary artery disease and diffuse calcifications of the left anterior descending with nonobstructive lesions of the left anterior descending BRANCHES. (3) HTN (hypertension) Current Visit: No Status: Chronic Qualifiers: Hypertension type: essential hypertension Qualified Code(s): I10 - E ssential (primary) hypertension Plan to address problem: Continue antihypertensives (4) Hyperlipidemia Current Visit: No Status: Chronic Qualifiers: Hyperlipidemia type: mixed hyperlipidemia Qualified Code(s): E78.2 - Mixed hyperlipidemia Plan to address problem: Continue statins (5) Gout Current Visit: Yes Status: Inactive Plan to address problem: Continue allopurinol 100 mg once a day (6) DVT prophylaxis Current Visit: Yes Status: Acute Plan to address problem: On Lovenox and GI prophylaxis History Interval history: Patient seen and examined today, reports some improvement in dizziness but still not at her best. Hospitalist Physical - Physical exam Narrative exam: General appearance: Present: no acute distress, well-nourished - EENT Eyes: Present: PERRL ENT: hearing intact, clear oral mucosa - Neck Neck: Present: supple, normal ROM - Respiratory Respiratory effort: normal Respiratory: bilateral: CTA - Cardiovascular Heart rate: 78 Rhythm: regular Heart Sounds: Present: S1 & S2. Absent: rub, click - Extremities Extremities: no ischemia, pulses intact, pulses symmetrical, No edema Peripheral Pulses: within normal limits - Abdominal General gastrointestinal: Present: soft, non-tender, non-distended, normal bowel sounds Female genitourinary: Present: normal - Integumentary Integumentary: Present: clear, warm, dry - Musculoskeletal Musculoskeletal: gait normal, strength equal bilaterally - Psychiatric Psychiatric: appropriate mood/affect, intact judgment & insight - Neurologic Neurologic: CNII-XII intact, moves all extremities, gait not tested - Allied Health Allied health notes reviewed: nursing, case management - Constitutional Vitals: Temp Pulse Resp BP Pulse Ox 97.4 F L 58 L 20 120/66 98 11/23/18 14:57 11/23/18 14:57 11/23/18 14:57 11/23/18 14:57 11/23/18 14:57 General appearance: Present: no acute distress, well-nourished Results - Labs CBC & Chem 7: 11/23/18 04:28 11/23/18 04:28 Labs: Laboratory Last Values WBC 5.2 K/mm3 (4.5-11.0) 11/23/18 04:28 RBC 3.96 M/mm3 (3.65-5.03) 11/23/18 04:28 Hgb 11.4 gm/dl (10.1-14.3) 11/23/18 04:28 Hct 35.3 % (30.3-42.9) 11/23/18 04:28 MCV 89 fl (79-97) 11/23/18 04:28 MCH 29 pg (28-32) 11/23/18 04:28 MCHC 32 % (30-34) 11/23/18 04:28 RDW 15.2 % (13.2-15.2) 11/23/18 04:28 Plt Count 159 K/mm3 (140-440) 11/23/18 04:28 Lymph % (Auto) 42.8 % (13.4-35.0) H 11/23/18 04:28 [place] % (Auto) 5.8 % (0.0-7.3) 11/23/18 04:28 Eos % (Auto) 0.8 % (0.0-4.3) 11/23/18 04:28 Baso % (Auto) 0.4 % (0.0-1.8) 11/23/18 04:28 Lymph # 2.2 K/mm3 (1.2-5.4) 11/23/18 04:28 [place] # 0.3 K/mm3 (0.0-0.8) 11/23/18 04:28 Eos # 0.0 K/mm3 (0.0-0.4) 11/23/18 04:28 Baso # 0.0 K/mm3 (0.0-0.1) 11/23/18 04:28 Seg Neutrophils % 50.2 % (40.0-70.0) 11/23/18 04:28 Seg Neutrophils # 2.6 K/mm3 (1.8-7.7) 11/23/18 04:28 PT 14.8 Sec. (12.2-14.9) 11/22/18 15:55 INR 1.09 (0.87-1.13) 11/22/18 15:55 APTT 24.0 Sec. (24.2-36.6) L 11/22/18 15:55 Sodium 142 mmol/L (137-145) 11/23/18 04:28 Potassium 3.6 mmol/L (3.6-5.0) 11/23/18 04:28 Chloride 103.3 mmol/L (98-107) 11/23/18 04:28 Carbon Dioxide 26 mmol/L (22-30) 11/23/18 04:28 Anion Gap 16 mmol/L 11/23/18 04:28 BUN 20 mg/dL (7-17) H 11/23/18 04:28 Creatinine 0.9 mg/dL (0.7-1.2) 11/23/18 04:28 Estimated GFR > 60 ml/min 11/23/18 04:28 BUN/Creatinine Ratio 22 % 11/23/18 04:28 Glucose 95 mg/dL (65-100) 11/23/18 04:28 Hemoglobin A1c 5.8 % (4-6) 11/22/18 15:55 Calcium 9.6 mg/dL (8.4-10.2) 11/23/18 04:28 Total Bilirubin 0.50 mg/dL (0.1-1.2) 11/23/18 04:28 AST 15 units/L (5-40) 11/23/18 04:28 ALT 8 units/L (7-56) 11/23/18 04:28 Alkaline Phosphatase 51 units/L (35-129) 11/23/18 04:28 Troponin T < 0.010 ng/mL (0.00-0.029) 11/22/18 15:55 Total Protein 6.9 g/dL (6.3-8.2) 11/23/18 04:28 Albumin 3.8 g/dL (3.9-5) L 11/23/18 04:28 Albumin/Globulin Ratio 1.2 % 11/23/18 04:28 Triglycerides 104 mg/dL (2-149) 11/23/18 04:28 Cholesterol 167 mg/dL (50-199) 11/23/18 04:28 LDL Cholesterol Direct 104 mg/dL (50-130) 11/23/18 04:28 HDL Cholesterol 55 mg/dL (40-59) 11/23/18 04:28 Cholesterol/HDL Ratio 3.03 % 11/23/18 04:28 Urine Color Straw (Yellow) 11/22/18 Unknown Urine Turbidity Clear (Clear) 11/22/18 Unknown Urine pH 6.0 (5.0-7.0) 11/22/18 Unknown Ur Specific [place] 1.008 (1.003-1.030) 11/22/18 Unknown Urine Protein <15 mg/dl mg/dL (Negative) 11/22/18 Unknown Urine Glucose (UA) Neg mg/dL (Negative) 11/22/18 Unknown Urine Ketones Neg mg/dL (Negative) 11/22/18 Unknown Urine Blood Neg (Negative) 11/22/18 Unknown Urine Nitrite Neg (Negative) 11/22/18 Unknown Urine Bilirubin Neg (Negative) 11/22/18 Unknown Urine Urobilinogen < 2.0 mg/dL (<2.0) 11/22/18 Unknown Ur Leukocyte Esterase Neg (Negative) 11/22/18 Unknown Urine WBC (Auto) 3.0 /HPF (0.0-6.0) 11/22/18 Unknown Urine RBC (Auto) 1.0 /HPF (0.0-6.0) 11/22/18 Unknown U Epithel Cells (Auto) 4.0 /HPF (0-13.0) 11/22/18 Unknown Urine Mucus Few /HPF 11/22/18 Unknown Salicylates < 0.3 mg/dL (2.8-20.0) L 11/22/18 16:29
--- NOTE | 2018-11-23 18:00 | Consultation ---
History of Present Illness Consult date: 11/23/18 Chief complaint: dizzy, ataxia History of present illness: This is a 68 YO f who presented tot he ED with dizziness and ataxia. Says she is feeling better now. No specific weakness, she can walk back and forth to the restroom. No double vision or palpatations. Past History Past Medical History: CAD, hypertension, hyperlipidemia, other (gout) Past Surgical History: No surgical history Social history: lives with family Family history: hypertension Medications and Allergies Allergies Allergy/AdvReac Type Severity Reaction Status Date / Time No Known Allergies Allergy Verified 12/23/17 07:00 Home Medications Medication Instructions Recorded Confirmed Last Taken Type Allopurinol [Zyloprim] 300 mg PO QDAY 12/23/17 12/23/17 11/22/18 History Aspirin EC [Aspirin Enteric Coated 81 mg PO QDAY 12/23/17 11/22/18 11/22/18 History TAB] AtorvaSTATin [Lipitor] 40 mg PO QDAY 12/23/17 11/22/18 11/22/18 History Metoprolol [Lopressor TAB] 50 mg PO BID 12/23/17 11/22/18 11/22/18 History Triamter/Hctz 37.5-25 mg 1 tab PO QDAY 12/23/17 11/22/18 11/22/18 History [Maxzide-25] amLODIPine [Norvasc] 10 mg PO DAILY #30 tab 12/23/17 11/22/18 11/22/18 Rx Allopurinol 300 mg PO QDAY 11/22/18 11/22/18 11/22/18 History Isosorbide Mononitrate 30 mg PO QDAY 11/22/18 11/22/18 Unknown History Losartan Potassium 50 mg PO QDAY 11/22/18 11/22/18 11/22/18 History Active Meds: Active Medications Acetaminophen (Tylenol) 650 mg PO Q4H PRN PRN Reason: Pain MILD(1-3)/Fever >100.5/RIVERA Allopurinol (Zyloprim) 300 mg PO QDAY [facility] Last Admin: 11/23/18 12:36 Dose: 300 mg Documented by: Amlodipine Besylate (Norvasc) 10 mg PO DAILY [facility] Last Admin: 11/23/18 12:33 Dose: 10 mg Documented by: Aspirin (Aspirin) 325 mg PO QDAY [facility] Last Admin: 11/23/18 12:36 Dose: 325 mg Documented by: Atorvastatin Calcium (Lipitor) 40 mg PO HS [facility] Last Admin: 11/22/18 21:41 Dose: Not Given Documented by: Enoxaparin Sodium (Lovenox) 40 mg SUB-Q QDAY@2200 [facility] Last Admin: 11/22/18 22:34 Dose: 40 mg Documented by: Famotidine (Pepcid) 20 mg PO BID [facility] Last Admin: 11/23/18 12:34 Dose: 20 mg Documented by: Hydromorphone HCl (Dilaudid) 0.5 mg IV Q3H PRN PRN Reason: Pain , Severe (7-10) Isosorbide Mononitrate (Imdur) 30 mg PO DAILY [facility] Last Admin: 11/23/18 12:36 Dose: 30 mg Documented by: Losartan Potassium (Cozaar) 50 mg PO QDAY [facility] Last Admin: 11/23/18 12:35 Dose: 50 mg Documented by: Meclizine HCl (Antivert) 25 mg PO Q8H [facility] Last Admin: 11/23/18 12:52 Dose: 25 mg Documented by: Metoprolol Tartrate (Lopressor) 50 mg PO BID [facility] Last Admin: 11/23/18 12:37 Dose: Not Given Documented by: Ondansetron HCl (Zofran) 4 mg IV Q8H PRN PRN Reason: Nausea And Vomiting Oxycodone/Acetaminophen (Percocet 5/325) 1 tab PO Q6H PRN PRN Reason: Pain, Moderate (4-6) Sodium Chloride (Sodium Chloride Flush Syringe 10 Ml) 10 ml IV BID [facility] Last Admin: 11/23/18 12:39 Dose: 10 ml Documented by: Sodium Chloride (Sodium Chloride Flush Syringe 10 Ml) 10 ml IV PRN PRN PRN Reason: LINE FLUSH Triamterene/HCTZ (Maxzide-25) 1 each PO QDAY [facility] Last Admin: 11/23/18 12:34 Dose: 1 each Documented by: Valsartan (Diovan) 160 mg PO QDAY [facility] Last Admin: 11/23/18 12:35 Dose: 160 mg Documented by: Review of Systems Neurological: balance difficulties Physical Examination - Vital Signs Vital Signs: Vital Signs Temp Pulse Resp BP Pulse Ox 98 F 62 16 157/77 100 02/13/19 15:28 11/22/18 15:28 11/22/18 15:28 11/22/18 15:28 11/22/18 15:28 - Constitutional General appearance: comfortable - EENT EENT: Present: mucous membranes moist - Respiratory Respiratory: Present: lungs clear - Cardiovascular Cardiovascular: Present: regular rate Extremities: Present: no peripheral edema bilatateraly - Gastrointestinal Gastrointestinal: Present: normoactive bowel sounds - Integumentary Integumentary: Present: normal - Neurologic Cranial nerve examination: PERRL, EOMI, VFF, V1/V2/V3 grossly intact, face symmetric, intact Motor examination - right side: 5/5: biceps, triceps, wrist flexion, wrist extension, 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 Level of Consciousness: alert/keenly responsive - LOC Questions 1b. LOC Questions: answers both correctly - LOC Command 1c. LOC Commands: performs tasks correctly - Best Gaze 2. Best Gaze: normal - Visual 3. Visual: no visual loss - Facial Palsy 4. Facial Palsy: normal symmetrical movement - Motor Arm 5b. Motor Arm Right: no drift - Motor Leg 6a. Motor Leg Left: no drift - Limb Ataxia 7. Limb Ataxia: absent - Sensory 8. Sensory: normal - Best Language 9. Best Language: no aphasia - Dysarthria 10. Dysarthria: normal - Extinction and Inattention 11. Extinction/Inattention: no abnormality Results - Laboratory Findings CBC and BMP: 11/23/18 04:28 11/23/18 04:28 Abnormal Lab Findings: Abnormal Labs 11/22/18 11/22/18 11/22/18 15:55 15:55 16:29 Lymph % (Auto) APTT 24.0 L BUN 25 H Glucose 102 H Albumin Salicylates < 0.3 L 11/23/18 11/23/18 04:28 04:28 Lymph % (Auto) 42.8 H APTT BUN 20 H Glucose Albumin 3.8 L Salicylates Assessment and Plan This is a 68 YO F with dizziness, resolving Recommend: Tests reviewed consider meclizine or valium 2 mg PRN for symptoms Continue care for all medical issues as you are doing Pt/OT for gait safety eval Please call with questions
[2018-11-23] MEDS: LOVENOX SUB-Q SCH (21:50)
[2018-11-24] MEDS: ANTIVERT PO SCH ×2 (05:21→11:44)
[2018-11-24 08:01] VITALS: BP 109/60
[2018-11-24] MEDS: COZAAR PO SCH (09:19)
[2018-11-24] MEDS: IMDUR PO SCH (09:20)
[2018-11-24] MEDS: DIOVAN PO SCH (09:20)
[2018-11-24] MEDS: LOPRESSOR PO SCH (09:21)
[2018-11-24] MEDS: PEPCID PO SCH (09:22)
[2018-11-24] MEDS: ZYLOPRIM PO SCH (09:22)
[2018-11-24] MEDS: ASPIRIN PO SCH (09:22)
[2018-11-24] MEDS: MAXZIDE-25 PO SCH (09:23)
[2018-11-24] MEDS: SODIUM CHLORIDE FLUSH SYRINGE 10 ML IV SCH (09:23)
[2018-11-24] MEDS: NORVASC PO SCH (09:23)
--- NOTE | 2018-11-24 10:21 | Discharge Summary ---
Providers - Providers Date of Admission: 11/22/18 18:53 Date of discharge: 11/24/18 Attending physician: ANA SHOEMAKER 11/22/18 Consult to Case Management [CONS] Routine Services Needed at Discharge: Home Health Services Notified:: field case manager 11/22/18 19:51 Consult to Physician [CONS] Routine Comment: Consulting Provider: ROMIE NICHOLSON Physician Instructions: Reason For Exam: tia 11/22/18 20:17 Occupational Therapy Evaluate and Treat [CONS] Routine Comment: Reason For Exam: Neuro deficits Physical Therapy Evaluation and Treat [CONS] Routine Comment: Reason For Exam: Neuro deficits Primary care physician: LISSETTE LUNA Hospitalization Reason for admission: Dizziness, Vertigo Condition: Stable Pertinent studies: MRI head negative for acute process. Hospital course: HPI on 68-year-old female with history of coronary artery disease, hypertension, gout and hyperlipidemia comes in for dizziness and unsteady gait for the last 3 days. Patient has been walking unsteady and with a feeling of falling down for the last 3 days. No worsening or improvement in symptoms. No weakness in any 4 extremities. No diplopia or nasal regurgitation of fluids. No difficulty swallowing. No chest pain. No fever or chills. Brief hospital course:" patient was admitted to the hospital medicine service with an initial diagnosis of Acute CVA but further studies showed no evidence of CVA. Patient admitted to dizziness with turning of her head, suspect BPPV. She was seen in consultation by the Neurologist. Physical therapy cleared patient. Counseled fall and aspiration precautions at all times. Will recommend Elidia Maneuver for patient to assist with the BPPV. Disposition: DC-01 TO HOME OR SELFCARE Time spent for discharge: more than 40 mins spent - Discharge Diagnoses (1) Benign paroxysmal positional vertigo Status: Acute Qualifiers: Laterality: right Qualified Code(s): H81.11 - Benign paroxysmal vertigo, right ear Core Measure Documentation - Palliative Care Palliative Care/ Comfort Measures: Not Applicable - Core Measures Any of the following diagnoses?: none - VTE Discharge Requirements Deep Vein Thrombosis/Pulmonary Embolism Present on Admission: No - Acute MO Discharge Requirements Aspirin at discharge: No Reason for no aspirin on DC: Medical contraindication - Heart Failure Discharge Requirements URSZULA/ARB for LVSD if EF <40%: Not Applicable - Stroke Discharge Requirements Statin for LDL = or >70 mg/dl on DC: Not Applicable Exam - Constitutional Vitals: Temp Pulse Resp BP Pulse Ox 98.0 F 64 20 109/60 98 11/24/18 07:20 11/24/18 09:23 11/24/18 07:20 11/24/18 09:23 11/24/18 07:20 General appearance: Present: no acute distress, well-nourished - EENT Eyes: Present: PERRL, EOM intact ENT: hearing intact, clear oral mucosa - Neck Neck: Present: supple, normal ROM - Respiratory Respiratory: bilateral: CTA, negative: diminished, rales, rhonchi, wheezing - Cardiovascular Rhythm: regular Heart Sounds: Present: S1 & S2 - Extremities Extremities: no ischemia, pulses intact, pulses symmetrical, normal temperature, normal color Peripheral Pulses: within normal limits - Abdominal General gastrointestinal: Present: soft, non-tender, non-distended Female genitourinary: Present: deferred - Rectal Rectal Exam: deferred - Integumentary Integumentary: Present: clear, warm, dry - Musculoskeletal Musculoskeletal: strength equal bilaterally - Psychiatric Psychiatric: appropriate mood/affect, intact judgment & insight, memory intact, cooperative - Neurologic Neurologic: CNII-XII intact, moves all extremities - Allied Health Allied health notes reviewed: nursing, PT, OT, social work, case management Plan Activity: no restrictions, fall precautions Diet: low cholesterol, low salt Special Instructions: record daily BP diary Additional Instructions: Follow up with PT outpatient for Elidia Maneuvers Follow up with: RICH LUNA [Staff Physician] - 3-5 Days Forms: Work/School Release Form Prescriptions: RX: Meclizine [Antivert] 25 mg PO Q8H #30 tablet Other Discharge Orders: Physicial Therapy (Amb) Location: None Selected
== END 2018-11-24 12:40 | disposition home or self-care (01) ==
LOC: ED 15:12 → 4A 18:53 → 2B-ACE 11-23 15:09
PROVIDERS: ADMIT Internal Medicine; ATTEND Family Medicine
DX: R26.81 Unsteadiness on feet (principal); I63.9 Cerebral infarction, unspecified; I10 Essential (primary) hypertension; E78.5 Hyperlipidemia, unspecified; I25.10 Atherosclerotic heart disease of native coronary artery without angina pectoris; K21.9 Gastro-esophageal reflux disease without esophagitis; M10.9 Gout, unspecified
CPT/HCPCS: 36415; 70450; 70544; 70551; 80053; 80061; 81001; 83036; 84484; 85025; 85610; 85730; 93005; 93010; 93306; 93880; 96372; 97161; 99284; 99406; G0378; G0480; J1650; 80320; A9270-GY